=== PATIENT | female | born 1955 | race Caucasian/White ===

== ENCOUNTER 2016-10-13 12:15 | Inpatient (IN) | payer SELFPAY ==
[~2016-10-13] VITALS: Ht 160 cm; Wt 57.5 kg
[~2016-10-13 12:15] MED LIST: HALDOL5 MG PO
[2016-10-13 14:37] VITALS: BP 195/111
[2016-10-13 16:15] LABS: EOSINOPHIL (%) 0 % (0-5); HEMATOCRIT 41.2 % (36.0-46.0); IMMATURE GRANULOCYTE (%) 0.4 % (0.0-0.7); INSTRUMENT ABS NEUTROPHIL CT 7.7 K/uL; MCH 29.3 PG (29.0-34.0); MCHC 34.2 G/DL (30.0-36.0); MCV 85.5 FL (83-99); MEAN PLAT.VOLUME 8.3 uM^3 (9.5-12.4); MONOCYTE (%) 2.6 % (3-12); MONOCYTE COUNT 0.2 K/uL (0-0.8); NEUTROPHIL (%) 85.9 % (45-76); NEUTROPHIL COUNT 7.7 K/uL (1.8-6.4); PLATELET COUNT 238 K/uL (156-360); RBC DIS.WIDTH-CV 12.3 % (11.8-14.6); RBC DIS.WIDTH-SD 38.5 % (39-53); RED BLOOD COUNT 4.82 M/uL (3.80-5.20)
[2016-10-13 16:27] LABS: CHLORIDE 106 mEq/L (99-109); POTASSIUM 4.3 mEq/L (3.7-5.4); SODIUM 140 mEq/L (136-147)
[2016-10-13 16:30] LABS: GLUCOSE 115 mg/dL (70-99)
[2016-10-13 16:31] LABS: ANION GAP 12 MEQ/L (2-14); TOTAL BILIRUBIN 0.6 mg/dL (0.0-1.0)
[2016-10-13 16:32] LABS: SERUM ETHYL ALCOHOL < 10 mg/dL
[2016-10-13 16:33] LABS: ALKALINE PHOSPHATASE 70 IU/L (3-129); GFR ESTIMATE (CALCULATED) > 59 mL/min/
[2016-10-13 16:34] LABS: UREA NITROGEN (BUN) 10 mg/dL (9-23)
[2016-10-13] MEDS ORDERED: PREMARIN0.3 MG PO (20:21)
== END 2016-10-17 11:04 | disposition home or self-care (01) | DRG 885 ==
LOC: EME 12:15 → 1WEST 16:04 → EDOF 16:04 → ENRESERV 17:28 → 1WEST 17:50
PROVIDERS: Emergency Medicine
DX: F20.9 Schizophrenia, unspecified (principal); F22 Delusional disorders; Z91.14 Patient's other noncompliance with medication regimen; Z91.19 Patient's noncompliance with other medical treatment and regimen; F41.9 Anxiety disorder, unspecified; I10 Essential (primary) hypertension; Z56.0 Unemployment, unspecified
CPT/HCPCS: 80053; 81003; 85025; 90837; 99281; 99285; G0480

== ENCOUNTER 2017-10-13 16:36 | Inpatient (IN) | payer SELFPAY ==
[~2017-10-13] VITALS: Ht 165.1 cm; Wt 53.6 kg
[~2017-10-13 16:36] MED LIST changes: +PREMARIN0.3 MG PO
[2017-10-13 18:12] LABS: AMPHETAMINE NEGATIVE (500 ng/mL); BARBITURATES NEGATIVE (200 ng/mL); BENZODIAZEPINES NEGATIVE (150 ng/mL); BUPRENORPHINE NEGATIVE (10 ng/mL); COCAINE NEGATIVE (150 ng/mL); METHADONE NEGATIVE (200 ng/mL); METHAMPHETAMINE NEGATIVE (500 ng/mL); OPIATES (MORPHINE) NEGATIVE (100 ng/mL); OXYCODONE NEGATIVE (100 ng/mL); PHENCYCLIDINE NEGATIVE (25 ng/mL); PROPOXYPHENE NEGATIVE (300 ng/mL); THC CANNABINOIDS NEGATIVE (50 ng/mL); TRICYCLIC ANTIDEPRESSANTS NEGATIVE (300 ng/mL)
[2017-10-14 15:56] VITALS: BP 124/75
[2017-10-15 07:26] VITALS: BP 111/56
[2017-10-15 16:19] VITALS: BP 152/84
[2017-10-16 07:40] VITALS: BP 129/77
[2017-10-16 15:51] VITALS: BP 120/67
[2017-10-17 09:02] VITALS: BP 136/89
[2017-10-17 18:17] VITALS: BP 161/77
[2017-10-18 07:28] VITALS: BP 166/85
[2017-10-18 15:07] VITALS: BP 143/71
[2017-10-19 08:00] VITALS: BP 145/86
[2017-10-19 16:16] VITALS: BP 137/69
[2017-10-20 08:02] VITALS: BP 122/73
== END 2017-10-20 14:20 | disposition home or self-care (01) | DRG 885 ==
LOC: EME 16:36 → 1WEST 20:29 → EDOF 20:29 → ENRESERV 22:47 → 1WEST 22:47
PROVIDERS: Emergency Medicine
DX: F20.0 Paranoid schizophrenia (principal); Z91.14 Patient's other noncompliance with medication regimen
CPT/HCPCS: 80048; 85027; 90837; 97150 GO; 97166 GO; 99281; 99284; G0480